=== PATIENT | female | born 1980 | race Caucasian/White ===

== ENCOUNTER → 2016-09-14 | Outpatient (CLI) | payer SELFPAY ==
[~2016-09-14] MED LIST: BUDE8.6S4; BUPR150T88 PO; ESCI20TA22 PO; FEXO180T56 PO; MELO-28 PO
== END ==
LOC: WC.BC 09-10 15:58
PROVIDERS: ATTEND Physician Assistant Medical
DX: Z12.31 Encounter for screening mammogram for malignant neoplasm of breast (principal); N64.59 Other signs and symptoms in breast; Z80.3 Family history of malignant neoplasm of breast